=== PATIENT | male | born 1995 | race Caucasian/White ===

== ENCOUNTER 2024-04-28 03:06 | Day surgery (SDC) | payer MEDICAID, SELFPAY ==
[2024-04-25 12:53] VITALS: BMI 28.4
--- OUTSIDE RECORDS SUMMARY | 2024-04-28 03:09 | XMS_ITS | Encounter Summary ---
Author Organization [facility] Address [address] [place] [address]. [address] [address] Care Team Providers Care Tank Wagon Driver Name Role Phone None, Provider Primary Care Provider Cullen Alexander MD Primary Care Provider None, Provider Primary Care Provider Carole crawford Encounter Details Date Type Department Care Team (Late st Contact Info) Description 09/03/2018 Abstract SFL CONVERSION [address] [place] [id number] , Generic Conversion, Social History Tobacco Use Types Packs/Day Years Used Date Smoking Tobacco: Never Assessed Sex and Gender Information Value Date Recorded Sex Assigned at Not on file Legal Sex Male 3:50 PM CDT Gender Identity Not on file Sexual Orientation Not on file documented as of this encounter Plan of Treatment Not on file documented as of this encounter Visit Diagnoses Not on filedocumented in this encounter Additional Health Concerns Infection Onset Date Last Indicated Resolved Time COVID-19 Rule Out 03/27/2022 03/27/2022 03/27/2022 4:17 PM PHYSICAL TRAINER COVID-19 Rule Out 03/01/2024 03/01/2024 03/01/2024 6:00 PM PHYSICAL TRAINER COVID-19 Rule Out 03/05/2024 03/05/2024 03/06/2024 12:05 AM PHYSICAL TRAINER Rhinovirus 03/05/2024 03/05/2024 03/15/2024 12:3 2 AM PHYSICAL TRAINER documented as of this encounter Care Teams Tank Wagon Driver Relationship Specialty Start Date End Date None, Provider, PCP - General 07/28/19 01/29/20 Cullen Saleh MD [address] [place] [phone] PCP - General FAMILY PRACTICE 01/30/20 03/26/22 None, Provider, PCP - General UNKNOWN PHYSICIAN SPECIALTY 03/27/22 documented as of this encounter
--- OUTSIDE RECORDS SUMMARY | 2024-04-28 03:09 | XMS_ITS | Clinical Summary ---
Author Organization [facility] Address [address] [place] [address]. [place], [place] [address] [place] [id number] Care Team Providers Care Waistline Joiner Overlock Name Role Phone None, Provider MD Primary Care Provider Unavaila ble Allergies No known active allergies Medications cyclobenzaprine (FLEXERIL) 10 MG tablet Take 1 tablet (10 mg total) by mouth 3 (three) times daily as needed for Muscle Spasms. 12 tablet 4 Active pantoprazole EC (PROTONIX) 40 MG tablet Take 1 tablet (40 mg total) by mouth 2 (two) times a day. 30 tablet 1 4 Active methylPREDNISolone (MEDROL) 4 MG tablet Take 1 tablet (4 mg total) by mouth daily. Active ondansetron (ZOFRAN-ODT) 4 MG disintegrating tablet Take 1 tablet (4 mg total) by mouth every 8 (eight) hours as needed for Nausea. 20 tablet 4 Active Active Problems Problem Noted Date Diagnosed Date Hematemesis with nausea 03/06/2024 Hematemesis 03/05/2024 Encounters Date Type Department Care Team Description 03/13/2024 8:15 AM SYSTEMS LIBRARIAN - 03/13/2024 11:59 PM [facility] [place] [address] Yohan Sun NP Discharge Disposition: Home or Self Care (Routine Discharge) 03/13/[address] [place] [address] Yohan Sun NP 03/13/2024 Travel 03/11/2024 1:51 AM SYSTEMS LIBRARIAN - 03/11/2024 4:45 AM SYSTEMS LIBRARIAN Emergency [facility] [place] [address] Loida Christian, Vomiting Discharge Disposition: Home or Self Care (Routine Discharge) 03/11/2024 Travel 03/10/2024 9:54 AM SYSTEMS LIBRARIAN - 03/10/2024 11:59 PM SYSTEMS LIBRARIAN Hospital Encounter [facility] [place] [address] Cullen Saleh MD Grothaus, Morgan Elizabeth, NP Discharge Disposition: Home or Self Care (Routine Discharge) 03/10/2024 9:53 AM SYSTEMS LIBRARIAN Hospital Encounter [facility] [place] [address] Cullen Saleh MD Discharge Disposition: Home or Self Care (Routine Discharge) 03/10/2024 Orders Only [facility] [address] [place] [address] [place] [address] Yohan Sun NP 03/10/2024 Travel 03/05/2024 8:32 PM SYSTEMS LIBRARIAN - 03/06/2024 4:48 PM SYSTEMS LIBRARIAN Hospital Encounter [facility] [address] [place] [address] Rajan Shelby MD Sheikh, Omer S, MD Mardani, Fareed, MD Discharge Disposition: Home or Self Care (Routine Discharge) 03/05/2024 8:37 AM SYSTEMS LIBRARIAN - 03/05/2024 7:22 PM SYSTEMS LIBRARIAN [facility] [place] [address] Loida Christian DO Medical Problem (Recent pneumonia DX. States is worse throwing up blood last night continues with high fevers ) Discharge Disposition: Another Health Care Institution Not Defined 03/05/2024 Travel 03/01/2024 4:59 PM SYSTEMS LIBRARIAN - 03/01/2024 7:31 PM SYSTEMS LIBRARIAN [facility] [place] [address] Lorri Haddad MD Fever; Flank Pain Discharge Disposition: Home or Self Care (Routine Discharge) 03/01/2024 Travel 01/31/2024 11:44 AM SYSTEMS LIBRARIAN - 01/31/2024 1:08 PM SYSTEMS LIBRARIAN [facility] [address] [place] [place] [address] Cathryn Chilel MD Vomiting Discharge Disposition: Home or Self Care (Routine Discharge) 01/31/2024 Travel from Last 3 Months Immunizations Name Administration Dates Next Due Fluzone (IIV3, Trivalent, 0. 5 ML Prefilled Syringe) 03/06/2024(Deferred: Patient/family declined) PFIZER COVID-19 (ORIGINAL FORMULATION, PURPLE CAP) mRNA, LNP-S, PF, 30 MCG/0.3 ML DOSE 01/04/2021,11/23/2020 Social History Tobacco Use Types Packs/Day Years Used Date Smoking Tobacco: Never Smokeless Tobacco: Never Alcohol Use Standard Drinks/Week Comments Yes 0 (1 standard drink = 0.6 oz pur e alcohol) occasionally Sex and Gender Information Value Date Recorded Sex Assigned at Not on file Legal Sex Male 3:50 PM CDT Gender Identity Not on file Sexual Orientation Not on file Last Filed Vital Signs Vital Sign Reading Time Taken Comments Blood Pressure 105/62 03/11/2024 4:30 AM SYSTEMS LIBRARIAN Pulse 117 03/11/2024 1:58 AM SYSTEMS LIBRARIAN Temperature 37.1 ??C (98.7 ??F) 03/11/2024 4:25 AM CS T Respiratory Rate 20 03/11/2024 1:58 AM SYSTEMS LIBRARIAN Oxygen Saturation 95% 03/11/2024 4:30 AM SYSTEMS LIBRARIAN Inhaled Oxygen Concentration - - Weight 97.5 kg (214 lb 15.2 oz) 03/11/2024 1:58 AM SYSTEMS LIBRARIAN Height 188 cm (6' 2.02 ) 03/11/2024 1:58 AM SYSTEMS LIBRARIAN Body Mass Index 27.58 03/11/2024 1:58 AM SYSTEMS LIBRARIAN Plan of Treatment Health Maintenance Due Date Last Done Comments Annual Physical 1997 Hepatitis B Vaccines (1 of 3 - 19+ 3-dose series) 2013 COVID-19 Vaccine (2023-2 5 season) 2023 01/04/2021, 11/23/2020 Influenza Adult (#1) 2023 01/28/2018 DTaP, Tdap and Td Vaccines ( 2 - Td or Tdap) 07/09/2024 07/09/2014 Hepatitis C Completed 03/05/2024 HPV Vaccines Aged Out No longer eligi ble based on patient's age to complete this topic Meningococcal B Vaccine Aged Out No l onger eligible based on patient's age to complete this topic Meningococcal Vaccine Aged Out No jorge aly eligible based on patient's age to complete this topic Pneumococcal Vaccine: Pediatrics (0 to 5 Years) and At-Risk Patients (6 to 64 Years) Aged Out No longer eligible b ased on patient's age to complete this topic RSV Immunizations Under 20 Months Aged Out No longer eligible b ased on patient's age to complete this topic Procedures Procedure Name Priority Date/Time Associated Diagnosis Comments C-REACTIVE PROTEIN Routine 03/13/2024 8: 40 AM SYSTEMS LIBRARIAN Hyperbilirubinem ia CBC W/DIFF AUTOMATED Routine 03/13/2024 8:40 AM SYSTEMS LIBRARIAN Hyperbilirubinem ia RHEUMATOID FACTOR, QUANT Routine 03/13/2024 8:40 AM SYSTEMS LIBRARIAN Hyperbilirubinem ia LYME DISEASE ANTIBODY Routine 03/13/2024 8:40 AM SYSTEMS LIBRARIAN Hyperbilirubinem ia SED RATE, ERYTHROCYTE (ESR) Routine 03/13/2024 8:40 AM SYSTEMS LIBRARIAN Hyperbilirubinem ia CYCLIC CITRULLINATED PEPTIDE (CCP)ANTIBODY(IGG) Routine 03/13/2024 8:40 AM SYSTEMS LIBRARIAN Hyperbilirubinem ia ANTINUCLEAR ANTIBODY WI RFX Routine 03/13/2024 8:40 AM SYSTEMS LIBRARIAN Hyperbilirubinem ia HC EBV NUCLEAR AG-90 STAT 03/11/2024 2:40 AM SYSTEMS LIBRARIAN COMPREHENSIVE METABOLIC PANEL STAT 03/11/2024 2:40 AM SYSTEMS LIBRARIAN CBC W/DIFF AUTOMATED STAT 03/11/2024 2:[address] ABD+PEL WWO CON STAT 03/10/2024 4: 48 PM SYSTEMS LIBRARIAN Hepatosplenomega ly CT CHEST WO CON STAT 03/10/2024 4:47 PM SYSTEMS LIBRARIAN Pneumonia XR CHEST PA+LAT Routine 03/10/2024 10:39 AM SYSTEMS LIBRARIAN Pneumonia HETEROPHILE ANTIBODIES,SCREEN Routine 03/10/2024 10:30 AM SYSTEMS LIBRARIAN Hyperbilirubinem ia Fever HC EBV NUCLEAR AG-90 Routine 03/10/2024 10:30 AM SYSTEMS LIBRARIAN Hyperbilirubinem ia Fever COMPREHENSIVE METABOLIC PANEL Routine 03/10/2024 10:30 AM SYSTEMS LIBRARIAN Hyperbilirubinem ia Fever HEMOGLOBIN AND HEMATOCRIT TIMED 03/06/2024 1:[address] CHEST WO CON Today 03/06/2024 9:42 AM SYSTEMS LIBRARIAN DIRECT BILIRUBIN Routine 03/06/2024 4:15 AM SYSTEMS LIBRARIAN COMPREHENSIVE METABOLIC PANEL Routine 03/06/2024 4:15 AM SYSTEMS LIBRARIAN CBC W/DIFF AUTOMATED Routine 03/06/2024 4:15 AM SYSTEMS LIBRARIAN US ABD LIMITED Today 03/06/2024 12:26 AM SYSTEMS LIBRARIAN HEMOGLOBIN, GLYCOSYLATED Routine 03/05/2024 11:45 PM SYSTEMS LIBRARIAN HC INFECT AGENT DETECT OPTICAL Nurse Collected Priority 03/05/2024 11:16 PM SYSTEMS LIBRARIAN LEGIONELLA AG URINE Nurse Collected Priority 03/05/2024 11:16 PM SYSTEMS LIBRARIAN DRUG SCREEN RAPID Nurse Collected Priority 03/05/2024 11:16 PM SYSTEMS LIBRARIAN RESPIRATORY PCR PANEL 2 Nurse Collected Priority 03/05/2024 10:31 PM SYSTEMS LIBRARIAN LIPASE Routine 03/05/2024 10:18 PM SYSTEMS LIBRARIAN HEPATITIS PANEL,ACUTE Routine 03/05/2024 10:18 PM SYSTEMS LIBRARIAN ETHANOL Routine 03/05/2024 10:18 PM SYSTEMS LIBRARIAN HEMOGLOBIN AND HEMATOCRIT TIMED 03/05/2024 10:18 PM SYSTEMS LIBRARIAN CULTURE, BACTERIA, BLOOD Routine 03/05/2024 10:17 PM SYSTEMS LIBRARIAN RESPIRATORY PCR PANEL 2 STAT 03/05/2024 10:56 AM SYSTEMS LIBRARIAN XR CHEST PA+LAT STAT 03/05/2024 9:47 AM SYSTEMS LIBRARIAN XR SHOULDER LT 3V STAT 03/05/2024 9:4 7 AM SYSTEMS LIBRARIAN PARTIAL THROMBOPLASTIN TIME,PTT STAT 03/05/2024 9:21 AM SYSTEMS LIBRARIAN PROTHROMBIN TIME, VENOUS STAT 03/05/2024 9:21 AM SYSTEMS LIBRARIAN COMPREHENSIVE METABOLIC PANEL STAT 03/05/2024 9:21 AM SYSTEMS LIBRARIAN CBC W/DIFF AUTOMATED STAT 03/05/2024 9:21 AM SYSTEMS LIBRARIAN URINE BACTERIA CULTURE STAT 03/01/2024 7:20 PM SYSTEMS LIBRARIAN HC URINALYSIS AUTO W/MICRO STAT 03/01/2024 7:[address] ABD+PEL W CON STAT 03/01/2024 5:41 PM SYSTEMS LIBRARIAN INFLUENZA A & B STAT 03/01/2024 5:25 PM SYSTEMS LIBRARIAN CORONAVIRUS (COVID-19) ANTIGEN STAT 03/01/2024 5:25 PM SYSTEMS LIBRARIAN CULTURE, BACTERIA, BLOOD STAT 03/01/2024 5:25 PM SYSTEMS LIBRARIAN LACTIC ACID W REFLEX (SEPSIS) STAT 03/01/2024 5:25 PM SYSTEMS LIBRARIAN COMPREHENSIVE METABOLIC PANEL STAT 03/01/2024 5:25 PM SYSTEMS LIBRARIAN CBC W/DIFF AUTOMATED STAT 03/01/2024 5:25 PM SYSTEMS LIBRARIAN HC URINALYSIS AUTO W/MICRO STAT 01/31/2024 12:33 PM SYSTEMS LIBRARIAN LIPASE STAT 01/31/2024 12:21 PM SYSTEMS LIBRARIAN COMPREHENSIVE METABOLIC PANEL STAT 01/31/2024 12:21 PM SYSTEMS LIBRARIAN CBC W/DIFF AUTOMATED STAT 01/31/2024 12:21 PM SYSTEMS LIBRARIAN from Last 3 Months Results * ANTINUCLEAR ANTIBODY WI RFX (03/13/2024 8:40 AM SYSTEMS LIBRARIAN) MALINI 0.2 03/14/2024 10:53 AM SYSTEMS LIBRARIAN [facility] Comment: NEGATIVE: <0.7 RATIO MALINI PROFILE AND TITER NOT PERFORMED THE MALINI SCREEN TESTS FOR THE FOLLOWING ANTIBODIES BY EIA: SSA1 (RO), SSB1 (LA), HILL, SCL70, JO1, CENTROMERE, FAUCETS ASSEMBLER HISTONE MUST BE ORDERED SEPARATELY DNA (DS) ANTIBODY <0.6 IU/ML 024 10:53 AM SYSTEMS LIBRARIAN [facility] Comment: NEGATIVE: <10 IU/mL EQUIVOCAL: 10 to 15 IU/mL POSITIVE: >15 IU/mL THIS QUANTITATIVE ASSAY IS CALIBRATED TO THE [employer]'S WO/80 STANDARD. THE LEVEL OF dsDNA AUTOANTIBODY GERERALLY CORRELATES WITH THE LEVEL OF DISEASE ACTIVITY IN SYSTEMIC LUPUS ERYTHMATOSUS 03/13/2024 8:40 AM SYSTEMS LIBRARIAN Yohan Sun NP LABORATORY Fin al Result Performing Organization Address City/[facility]/ZIP Co de Phone Number [facility] [address] [place] [address], [phone] * RHEUMATOID FACTOR, QUANT (03/13/2024 8:40 AM SYSTEMS LIBRARIAN) RHEUMATOID FACTOR <10 <15 IU/ML 03/13/2024 4:07 PM SYSTEMS LIBRARIAN [facility] 03/13/2024 8:40 AM SYSTEMS LIBRARIAN Yohan [facility] LABORATORY Fin al Result Performing Organization Address [facility] de Phone Number [facility] [address] [place] [address], [place] [phone] * CYCLIC CITRULLINATED PEPTIDE (CCP)ANTIBODY(IGG) (03/13/2024 8:40 AM SYSTEMS LIBRARIAN) CITRULLINE PEPTIDE ANTIBODY <16 <20 Units 03/17/2024 4:13 PM SYSTEMS LIBRARIAN [employer] HALIE QUESADA Comment: Negative: ? <20 Weak Positive: ?20 - 39 Moderate Positive: ?40 - 59 Strong Positive: ?>59 Test Performed by Bryon Zapata, [employer] [facility], [address] [place] [address] Wes Carroll M.D., Ph.D., Director of Laboratories , [facility] [id number] 03/13/2024 8:40 AM SYSTEMS LIBRARIAN Yohan [facility] CONTINUOUS IMPROVEMENT ENGINEER LABORATORY Fin al Result Performing Organization Address City/[facility] Co de Phone Number [employer] [place] [address] [place] [address], [place] [phone] * (ABNORMAL) SED RATE, ERYTHROCYTE (ESR) (03/13/2024 8:40 AM SYSTEMS LIBRARIAN) ESR 25(H) 0 - 15 MM/HR 03/13/2024 9:[address] [facility] 03/13/2024 8:40 AM SYSTEMS LIBRARIAN Yohan Sun CONTINUOUS IMPROVEMENT ENGINEER LABORATORY Fin al Result [facility] [address] [place] [address], * LYME DISEASE ANTIBODY (03/13/2024 8:40 AM SYSTEMS LIBRARIAN) Pathologist [facility] LYME IGG/IGM <0.90 <0.90 Index 03/16/2024 7:41 AM SYSTEMS LIBRARIAN Marvin CHRISTINE QUESADA Comment: Reference ranges: Index ? Interpretation ----- ? <0.90 ? Negative 0.90-1.09 ? Equivocal >1.09 ? Positive As recommended by the Food and Drug Administration (FDA), all samples with positive or equivocal results in a Borrelia burgdorferi antibody screen will be tested using a blot method. Positive or equivocal screening test results should not be interpreted as truly positive until verified as such using a supplemental assay (e.g., B. burgdorferi blot). The screening test and/or blot for B. burgdorferi antibodies may be falsely negative in early stages of Lyme disease, including the period when erythema migrans is apparent. The Code of [place], Article 1 of Chapter 5 of Title 32.1, section 32.1-137.06, requires that the following language must be included on every Lyme disease test report issued by a [place] laboratory: Patients undergoing a Lyme disease test should be aware that Lyme disease tests vary and may produce results that are inaccurate. This means a patient may not be able to rely on a positive or negative result. Health care providers are encouraged to discuss Lyme disease test results with the patient for whom the test was ordered. Test Performed by [facility], [employer] [facility], [address] [place] [address] Wes Carroll M.D., Ph.D., Director of Laboratories , CLIA [id number] 03/13/2024 8:40 AM SYSTEMS LIBRARIAN [facility] JULIO CESAR LABORATORY Fin al Result [employer] [address] , [place] [phone] * (ABNORMAL) C-REACTIVE PROTEIN (03/13/2024 8:40 AM SYSTEMS LIBRARIAN) C-REACTIVE PROTEIN 3.27(H) <0.30 mg/dL 03/13/2024 9:[address] [facility] 03/13/2024 8:40 AM SYSTEMS LIBRARIAN [facility] [address] [place] [address], [place] [phone] * (ABNORMAL) CBC W/DIFF AUTOMATED (03/13/2024 8:40 AM SYSTEMS LIBRARIAN) Only the most recent of6 resultswithin the time period is included. WBC 10.28 4.00 - 10.80 x10'3/uL 03/13/2024 9:[address] [facility] RBC 5.06 4.50 - 6.10 x10'6/uL 03/13/2024 9:[address] [facility] HGB 14.5 13.0 - 18.0 G/DL 03/13/2024 9:[address] [facility] HCT 43.8 37.0 - 52.0 % 03/13/2024 9:41 AM [facility] MCV 86.6 78.0 - 100.0 FL 03/13/2024 9:41 AM [facility] MCH 28.7 27.0 - 31.0 PG 03/13/2024 9:41 AM [facility] MCHC 33.1 33.0 - 36.0 G/DL 03/13/2024 9:41 AM [facility] RDW 14.1 11.5 - 14.5 % 03/13/2024 9:41 AM [facility] PLT 255 150 - 350 x10'3/uL 03/13/2024 9:41 AM [facility] MPV 10.7(H) 7.4 - 10.4 FL 03/13/2024 9:41 AM [facility] CBC COMMENT NORMAL REFERENCE RANGE NOT ESTABLISHED FOR THE PROPORTIONAL LEUKOCYTE DIFFERENTIAL. 03/13/2024 9:41 AM [facility] SEG NEUTROPHILS 36 % 11:02 AM [facility] BANDS 2 % 03/13/2024 11:02 AM [facility] LYMPHOCYTES 53 % 03/13/2024 11:02 AM [facility] MONOCYTES 9 % 03/13/2024 11:02 AM [facility] ABS SEGMENTED NEUTS 3.70 1.60 - 8.30 x10'3/uL 03/13/2024 11:02 AM [facility] ABS. BANDS 0.21 0.00 - 1.00 x10'3/uL 03/13/2024 11:02 AM [facility] ABS. LYMPHOCYTES 5.44(H) 0.80 - 4.70 x10'3/uL 03/13/2024 11:02 AM [facility] ABS. MONOCYTES 0.93 0.10 - 1.50 x10'3/uL 03/13/2024 11:02 AM [facility] PLT MORPH. NORMAL 03/13/2024 11:02 AM [facility] RBC MORPHOLOGY 2+ 03/13/2024 11:02 AM [facility] Comment: ANISOCYTOSIS 2+ POIKILOCYTOSIS 1+ ELLIPTOCYTES 1+ TARGET CELLS WBC MORPHOLOGY MANY ATYPICAL LYMPHS 03/13/2024 11:02 AM [facility] 03/13/2024 8:40 AM SYSTEMS LIBRARIAN Yohan Sun CONTINUOUS IMPROVEMENT ENGINEER LABORATORY Fin al Result [facility] [address] [place] [address], * (ABNORMAL) COMPREHENSIVE METABOLIC PANEL (03/11/2024 2:40 AM SYSTEMS LIBRARIAN) Only the most recent of6 resultswithin the time period is included. SODIUM S/P/B 135(L) 136 - 145 MMOL/L 03/11/2024 3:12 AM [facility] POTASSIUM S/P/B 3.5 3.5 - 5.1 MMOL/L 03/11/2024 3:12 AM [facility] Comment:MILD HEMOLYSIS, RESU LT MAY BE AFFECTED. CHLORIDE S/P/B 98 98 - 107 MMOL/L 03/11/2024 3:12 AM [facility] CO2 26.6 21.0 - 32.0 MMOL/L 03/11/2024 3:12 AM [facility] GLUCOSE 123(H) 70 - 99 MG/DL 03/11/2024 3:12 AM [facility] Comment: MILD LIPEMIA. RESULT MAY BE AFFECTED. FASTING GLUCOSE 100 TO 125 MG/DL IS CONSISTENT WITH IMPAIRED FASTING GLUCOSE. FASTING GLUCOSE >125 MG/DL IS CONSISTENT WITH DIABETES. RANDOM GLUCOSE >200 MG/DL WITH HYPERGLYCEMIC SYMPTOMS IS CONSISTENT WITH DIABETES. PER ADA GUIDELINES BUN 9 6 - 24 MG/DL 03/11/2024 3:12 AM [facility] CREATININE S/P/B 1.10 0.70 - 1.30 MG/DL 03/11/2024 3:12 AM [facility] CALCIUM S/P/B 8.5 8.4 - 10.5 MG/DL 03/11/2024 3:12 AM [facility] BILIRUBIN TOTAL S/P/B 1.4(H) 0.2 - 1.0 MG/DL 03/11/2024 3:12 AM [facility] Comment: THIS ASSAY IS NOT RECOMMENDED FOR PATIENTS UNDERGOING TREATMENT WITH ELTROMBOPAG DUE TO THE POTENTIAL FOR FALSELY ELEVATED RESULTS. ALKALINE PHOSPHATASE S/P/B 143(H) 45 - 115 U/L 03/11/2024 3:12 AM [facility] AST 90(H) 15 - 37 U/L 03/11/2024 3:12 AM [facility] Comment:MILD HEMOLYSIS, RESU LT MAY BE AFFECTED. ALT 112(H) 16 - 63 U/L 03/11/2024 3:12 AM [facility] TOTAL PROTEIN S/P/B 6.8 6.4 - 8.2 G/DL 03/11/2024 3:12 AM [facility] ALBUMIN S/P/B 3.1(L) 3.4 - 5.0 G/DL 03/11/2024 3:12 AM [facility] ANION GAP 10.4 5.0 - 15.0 MMOL/L 03/11/2024 3:12 AM [facility] OSMOLALITY (CALC) 280 MOSM/KG 03/11/ 024 3:12 AM [facility] Comment:REFERENCE RANGE NOT ESTABLISHED GFR ESTIMATE >90 >89 ML/MIN/1. 73 M2 03/11/2024 3:12 AM [facility] GFR NOTES GFR REFERENCE S: 03/11/2024 3:12 AM [facility] Comment: THE ESTIMATED GFR IS CALCULATED USING THE 2020 CKD-EPI EQUATION. THE FOLLOWING CATEGORIES FOR GRADING RENAL FUNCTION ARE RECOMMENDED BY THE INTERNATIONAL SOCIETY OF NEPHROLOGY (KDIGO 2012 CLINICAL PRACTICE GUIDELINE). G1,NORMAL OR HIGH: >89 ml/min/1.73 m2 G2,MILDLY DECREASED: 60-89 ml/min/1.73 m2 G3A,MILDLY TO MODERATELY DECREASED: 45-59 ml/min/1.73 m2 G3B,MODERATELY TO SEVERELY DECREASED: 30-44 ml/min/1.73 m2 G4,SEVERELY DECREASED: 15-29 ml/min/1.73 m2 G5,KIDNEY FAILURE: <15 ml/min/1.73 m2 03/11/2024 2:40 AM SYSTEMS LIBRARIAN us Loida Christian DO LABORATORY Final Result [facility] [address] [place] [address], * (ABNORMAL) MARISOL KONG VIRUS (03/11/2024 2:40 AM SYSTEMS LIBRARIAN) Only the most recent of2 resultswithin the time period is included. EBV VCA IGM <36.00 <36.00 U/mL 03/16/2024 2:42 PM [employer] BALDO MANCUSO Comment: ?? U/mL ?Interpretation ?<36.00 ?Negative 36.00 - 43.99 ?Equivocal ??>43.99 ?Positive EBV VCA IGG 620.00(H) <18.00 U/mL 03/16/2024 2:42 PM [employer] BALDO MANCUSO Comment: ?? U/mL ?Interpretation ?<18.00 ?Negative 18.00 - 21.99 ?Equivocal ??>21.99 ?Positive MARISOL BAR NUCLEAR ANTIGEN IGG 361.00(H) <18.00 U/mL 03/16/2024 2:42 PM [employer] BALDO MANCUSO Comment: ?? 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 In infants, a similiar pattern may occur as a result of a passive maternal transfer of antibody. Test Performed by Bryon Zapata, [employer] [facility], [address] [place] [address] Wes Carroll M.D., Ph.D., Director of Laboratories , [place] [id number] 03/11/2024 2:40 AM SYSTEMS LIBRARIAN us Loida Christian DO LABORATORY Final Result [employer] [address] , * CT ABD+PEL WWO CON (03/10/2024 4:48 PM SYSTEMS LIBRARIAN) Anatomical Region Laterality Modality Abdomen Computed Tomogra phy 03/10/2024 5:56 PM SYSTEMS LIBRARIAN Impressions 03/10/2024 6:03 PM SYSTEMS LIBRARIAN IMPRESSION: 1. ??Hepatosplenomegaly, similar to the prior examination. 2. ??No definite solid or enhancing hepatic or splenic masses are identified. 3. ??There are several tiny hypodensities within the superior aspect of the spleen. These are technically indeterminant but are most likely to be small benign cysts. Follow-up/further evaluation with MRI with/without contrast in 3 months could be performed with attention to the liver and spleen. 4. ??Stable 1 mm nonobstructing calculus within the left kidney. No hydronephrosis or urolithiasis. 5. ??No ascites. Ordered By: YOHAN SUN Interpreted By: Patricio Winters DO, 03/10/2024 5:56 PM Narrative 03/10/2024 6:03 PM SYSTEMS LIBRARIAN [place] [id number] [place] [address] EXAMINATION: CT ABD+PEL WWO CON HISTORY: Hepatosplenomegaly. Follow-up. COMPARISON: CT abdomen/pelvis 03/01/2024. TECHNIQUE: Axial CT images of the abdomen and pelvis both before and after the uneventful intravenous administration of 90 mL of Isovue-370 given through the right antecubital fossa. Sagittal and coronal reformatted image sets. A dose lowering technique was used for this procedure, which may include, but is not limited to, dose reduction technique, automated exposure control, the use of degenerative reconstruction, and ALARA/image gently techniques. FINDINGS: The included lung bases are clear. The heart is normally sized. The liver and spleen remain enlarged, similar to the prior examination. No evidence of hepatic steatosis. No evidence of hepatic mass. There are several tiny hypodensities within the superior aspect of the spleen. These are technically indeterminant but are most likely to be small benign cysts. Follow-up/further evaluation with MRI with/without contrast in 3 months could be performed with attention to the liver and spleen. No definite solid or enhancing splenic masses are identified. There is no cholelithiasis. No evidence of acute cholecystitis. There is no biliary ductal dilatation. No acute-appearing pancreatic abnormalities. No adrenal masses. The kidneys enhance symmetrically. There is a nodular renal contour bilaterally. No hydrocephalus. Stable 1 mm nonobstructing calculus within the left kidney. There is no urolithiasis. No evidence of renal mass or inflammation. The abdominal aorta is normal caliber. There is no retroperitoneal lymphadenopathy. No ascites or free intraperitoneal air. There is no bowel obstruction. No evidence of colonic or enteric inflammatory change. The appendix is normal caliber. No evidence of acute appendicitis. No herniated bowel loops. Small fat-containing umbilical hernia. There is no bladder wall thickening. No free pelvic fluid. No acute osseous abnormalities identified. ?? Procedure Note Patricio Winters DO - 03/10/2024 [facility] [address] [place] [address] EXAMINATION: CT ABD+PEL WWO CON HISTORY: Hepatosplenomegaly. Follow-up. COMPARISON: CT abdomen/pelvis 03/01/2024. TECHNIQUE: Axial CT images of the abdomen and pelvis both before and after theuneventful intravenous administration of 90 mL of Isovue-370 given throughthe right antecubital fossa. Sagittal and coronal reformatted imagesets. A dose lowering technique was used for this procedure, which may include,but is not limited to, dose reduction technique, automated exposurecontrol, the use of degenerative reconstruction, and ALARA/image gentlytechniques. FINDINGS: The included lung bases are clear. The heart is normally sized. The liverand spleen remain enlarged, similar to the prior examination. No evidenceof hepatic steatosis. No evidence of hepatic mass. There are several tinyhypodensities within the superior aspect of the spleen. These aretechnically indeterminant but are most likely to be small benign cysts.Follow-up/further evaluation with MRI with/without contrast in 3 monthscould be performed with attention to the liver and spleen. No definitesolid or enhancing splenic masses are identified. There is no cholelithiasis. No evidence of acute cholecystitis. There isno biliary ductal dilatation. No acute-appearing pancreatic abnormalities.No adrenal masses. The kidneys enhance symmetrically. There is a nodular renal contourbilaterally. No hydrocephalus. Stable 1 mm nonobstructing calculus withinthe left kidney. There is no urolithiasis. No evidence of renal mass orinflammation. The abdominal aorta is normal caliber. There is no retroperitoneallymphadenopathy. No ascites or free intraperitoneal air. There is no bowel obstruction. Noevidence of colonic or enteric inflammatory change. The appendix is normalcaliber. No evidence of acute appendicitis. No herniated bowel loops.Small fat-containing umbilical hernia. There is no bladder wall thickening. No free pelvic fluid. No acute osseous abnormalities identified. IMPRESSION: 1. Hepatosplenomegaly, similar to the prior examination. 2. No definite solid or enhancing hepatic or splenic masses areidentified. 3. There are several tiny hypodensities within the superior aspect of thespleen. These are technically indeterminant but are most likely to besmall benign cysts. Follow-up/further evaluation with MRI with/withoutcontrast in 3 months could be performed with attention to the liver andspleen. 4. Stable 1 mm nonobstructing calculus within the left kidney. Nohydronephrosis or urolithiasis. 5. No ascites. Ordered By: YOHAN SUN Interpreted By: Patricio Winters DO, 03/10/2024 5:56 PM us Yohan Sun CONTINUOUS IMPROVEMENT ENGINEER CT Fin al Result * CT CHEST WO CON (03/10/2024 4:47 PM SYSTEMS LIBRARIAN) Only the most recent of2 resultswithin the time period is included. Anatomical Region Laterality Modality Chest Computed Tomogra phy 03/10/2024 5:13 PM SYSTEMS LIBRARIAN Impressions 03/10/2024 6:12 PM SYSTEMS LIBRARIAN IMPRESSION: 1. No evidence of pneumonia. 2. Stable 3 mm nodule in the left lung base. A follow-up CT scan of the chest in 12 months could be considered if the patient is at high risk for lung cancer. No further follow-up is needed in a low risk patient per Fleischner Society guidelines. Dictated By: Kieran Haney MD on 03/10/2024 5:13 PM The attending radiologist has reviewed the image(s) and agrees with the content of this report. Ordered By: YOHAN SUN Interpreted By: Kieran Haney MD, 03/10/2024 5:13 PM Narrative 03/10/2024 6:12 PM SYSTEMS LIBRARIAN [address] [place] [address] Examination: CT CHEST WO CON Exam time: 03/10/2024 4:41 PM Clinical history: Pneumonia follow-up Comparison: CT chest 03/06/2024, chest radiograph 03/05/2024 Technique: CT chest was performed without the use of IV contrast. Coronal and sagittal reformatted images were reviewed. A dose lowering technique was used for this procedure, which may include, but is not limited to, dose reduction technique, automated exposure control, iterative reconstruction, ALARA (As Low As Reasonably Achievable), or Image Gently techniques. Findings: No focal consolidation is seen within the lungs. There is a redemonstrated 3 mm pulmonary nodule in the left lower lobe on series 3 image 53. There are no sizable pleural effusions. No pneumothorax is identified. There is no central airway abnormality. The heart is normal in size. There is no pericardial effusion. The aorta and main pulmonary arteries are normal in caliber. There is no mediastinal lymphadenopathy. No acute abnormality seen in the visualized upper abdomen. Procedure Note Dejon Anaya MD - 03/10/2024 [place] [id number] [place] [address] Examination: CT CHEST WO CON Exam time: 03/10/2024 4:41 PM Clinical history: Pneumonia follow-up Comparison: CT chest 03/06/2024, chest radiograph 03/05/2024 Technique: CT chest was performed without the use of IV contrast. Coronaland sagittal reformatted images were reviewed. A dose lowering techniquewas used for this procedure, which may include, but is not limited to,dose reduction technique, automated exposure control, iterativereconstruction, ALARA (As Low As Reasonably Achievable), or Image Gentlytechniques. Findings: No focal consolidation is seen within the lungs. There is a redemonstrated3 mm pulmonary nodule in the left lower lobe on series 3 image 53. Thereare no sizable pleural effusions. No pneumothorax is identified. There isno central airway abnormality. The heart is normal in size. There is nopericardial effusion. The aorta and main pulmonary arteries are normal incaliber. There is no mediastinal lymphadenopathy. No acute abnormalityseen in the visualized upper abdomen. IMPRESSION: 1. No evidence of pneumonia. 2. Stable 3 mm nodule in the left lung base. A follow-up CT scan of thechest in 12 months could be considered if the patient is at high risk forlung cancer. No further follow-up is needed in a low risk patient perFleischner Society guidelines. Dictated By: Kieran Haney MD on 03/10/2024 5:13 PM The attending radiologist has reviewed the image(s) and agrees with thecontent of this report. Ordered By: YOHAN SUN Interpreted By: Kieran Haney MD, 03/10/2024 5:13 PM us Yohan Sun CONTINUOUS IMPROVEMENT ENGINEER CT Fin al Result * XR CHEST PA+LAT (03/10/2024 10:39 AM SYSTEMS LIBRARIAN) Only the most recent of2 resultswithin the time period is included. Anatomical Region Laterality Modality Chest Radiographic Margarita ging 03/10/2024 10:4 8 AM SYSTEMS LIBRARIAN Impressions 03/10/2024 10:50 AM SYSTEMS LIBRARIAN IMPRESSION: No acute cardiopulmonary process identified. Ordered By: YOHAN SUN Interpreted By: William Ramirez MD, 03/10/2024 10:48 AM Narrative 03/10/2024 10:50 AM SYSTEMS LIBRARIAN [address] [place] [facility] Examination: Two-view chest Exam time: 1018 hours. Clinical history: Cough. Comparison: ??03/05/2024; CT of the chest, 03/06/2024. Technique: PA and lateral views Findings: The cardiomediastinal silhouette is stable. The heart remains within normal limits for size. Pulmonary vascularity is within normal limits. No acute infiltrates or effusions are identified. The bony thorax is stable. Procedure Note William Ramirez MD - 03/10/[address] [place] [address] Examination: Two-view chest Exam time: 1018 hours. Clinical history: Cough. Comparison: 03/05/2024; CT of the chest, 03/06/2024. Technique: PA and lateral views Findings: The cardiomediastinal silhouette is stable. The heart remainswithin normal limits for size. Pulmonary vascularity is within normallimits. No acute infiltrates or effusions are identified. The bony thoraxis stable. IMPRESSION: No acute cardiopulmonary process identified. Ordered By: YOHAN SUN Interpreted By: William Ramirez MD, 03/10/2024 10:48 AM Yohan Sun CONTINUOUS IMPROVEMENT ENGINEER GENERAL IMAGING Fin al Result * HETEROPHILE ANTIBODIES,SCREEN (03/10/2024 10:30 AM SYSTEMS LIBRARIAN) MONO TEST NEGATIVE NEGATIVE 03/10/2024 11:[address] [facility] 03/10/2024 10:3 0 AM SYSTEMS LIBRARIAN Yohan Sun CONTINUOUS IMPROVEMENT ENGINEER LABORATORY Fin al Result Performing Organization Address City/[facility] Co de Phone Number [facility] [address] [place] [address], * HEMOGLOBIN AND HEMATOCRIT (03/06/2024 1:40 PM SYSTEMS LIBRARIAN) Only the most recent of2 resultswithin the time period is included. HGB 14.3 12.0 - 16.0 G/DL 03/06/2024 2:10 PM SYSTEMS LIBRARIAN [facility] HCT 43.6 37.0 - 52.0 % 03/06/2024 2:10 PM SYSTEMS LIBRARIAN [facility] 03/06/2024 1:40 PM SYSTEMS LIBRARIAN Rigo Kaplan MD LABORATORY Final Result [facility] [address] [place] [address], [place] [phone] [id number] * (ABNORMAL) DIRECT BILIRUBIN (03/06/2024 4:15 AM SYSTEMS LIBRARIAN) BILIRUBIN DIRECT S/P/B 0.4(H) 0.0 - 0.2 MG/DL 03/06/2024 9:34 AM SYSTEMS LIBRARIAN [facility] 03/06/2024 4:15 AM SYSTEMS LIBRARIAN Jerrell Mayfield MD LABORATORY Final Result [facility] [address] [place] [address], [id number] * US ABD LIMITED (03/06/2024 12:26 AM SYSTEMS LIBRARIAN) Anatomical Region Laterality Modality Abdomen Ultrasound 03/06/2024 12:2 7 AM SYSTEMS LIBRARIAN Impressions 03/06/2024 12:29 AM SYSTEMS LIBRARIAN IMPRESSION: Right upper quadrant abdominal sonogram is within normal limits. Referred By: LOIDA CHRISTIAN Interpreted By: Chary Chilel MD, 03/06/2024 12:27 AM Narrative 03/06/2024 12:29 AM SYSTEMS LIBRARIAN [address] [address] EXAMINATION: Right Upper Abdominal Quadrant Sonogram INDICATION: Elevated liver function tests. TECHNIQUE: Grayscale and color Doppler imaging of the right upper abdominal quadrant was obtained. COMPARISON: CT abdomen/pelvis 03/01/2024. FINDINGS: Liver: No focal parenchymal lesion. ??Patency of the hepatic veins and main portal vein. Pancreas: Distal pancreatic body and tail partially obscured by overlying bowel gas.. Gallbladder: Normal anechoic lumen with no gallstones, significant distention, or wall thickening. ??A sonographic Barrera sign was not elicited. The common duct is normal measuring 3 mm. Procedure Note Chary Chilel MD - 03/06/[address] [address] EXAMINATION: Right Upper Abdominal Quadrant Sonogram INDICATION: Elevated liver function tests. TECHNIQUE: Grayscale and color Doppler imaging of the right upperabdominal quadrant was obtained. COMPARISON: CT abdomen/pelvis 03/01/2024. FINDINGS: Liver: No focal parenchymal lesion. Patency of the hepatic veins and mainportal vein. Pancreas: Distal pancreatic body and tail partially obscured by overlyingbowel gas.. Gallbladder: Normal anechoic lumen with no gallstones, significantdistention, or wall thickening. A sonographic Barrera sign was notelicited. The common duct is normal measuring 3 mm. IMPRESSION: Right upper quadrant abdominal sonogram is within normallimits. Referred By: LOIDA CHRISTIAN Interpreted By: Chary Chilel MD, 03/06/2024 12:27 AM us Rigo Kaplan MD ULTRASOUND Final Result * HEMOGLOBIN, GLYCOSYLATED (03/05/2024 11:45 PM SYSTEMS LIBRARIAN) HGB A1C 5.3 <5.7 % 03/06/2024 2:54 AM SYSTEMS LIBRARIAN [facility] ESTIMATED AVG GLUCOSE 105 74 - 114 MG/DL 03/06/2024 2:54 AM SYSTEMS LIBRARIAN [facility] 03/05/2024 11:4 5 PM SYSTEMS LIBRARIAN us Rigo Kaplan MD LABORATORY Final Result [facility] [address] [place] [address], [id number] * STREP PNEUMO AG URINE (03/05/2024 11:16 PM SYSTEMS LIBRARIAN) Pathologist [facility] S. PNEUMONIAE URINARY AG NEGATIVE NEGATIVE 03/06/2024 11:27 AM SYSTEMS LIBRARIAN [facility] Comment: PRESUMPTIVE NEGATIVE FOR PNEUMOCOCCAL PNEUMONIA, SUGGESTING NO CURRENT OR RECENT PNEUMOCOCCAL INFECTION. INFECTION DUE TO STREPTOCOCCUS PNEUMONIA CANNOT BE RULED OUT SINCE THE ANTIGEN PRESENT IN THE SAMPLE MAY BELOW THE DETECTION LIMIT OF THE TEST. SPECIMEN TYPE URINE CLEAN CATCH 03/05/2024 11:15 PM SYSTEMS LIBRARIAN [facility] URINE SPECIMEN OBTAINED BY CLEAN CATCH PROCEDURE / Unknown 03/05/2024 11:16 PM SYSTEMS LIBRARIAN us Rigo Kaplan MD MICROBIOLOGY - GENERAL ORDERABL ES Final Result [facility] [address] [place] [address], [id number] * (ABNORMAL) URINE DRUG SCREEN (TOXICOLOGY) (03/05/2024 11:16 PM SYSTEMS LIBRARIAN) PHENCYCLIDINE PCP (U) NEGATIVE NEGATIVE 03/05/2024 11:48 PM SYSTEMS LIBRARIAN [facility] BENZODIAZEPINES SCREEN (U) NEGATIVE NEGATIVE 03/05/2024 11:48 PM SYSTEMS LIBRARIAN [facility] COCAINE METABOLITES (U) NEGATIVE NEGATIVE 03/05/2024 11:48 PM SYSTEMS LIBRARIAN [facility] AMPHETAMINE (U) NEGATIVE NEGATIVE 11:48 PM SYSTEMS LIBRARIAN [facility] CANNABINOIDS SCREEN (U) NEGATIVE NEGATIVE 03/05/2024 11:48 PM [facility] OPIATE SCREEN (U) POSITIVE SCREEN RESULT, IF CONFIRMATION DESIRED PLEASE CONTACT LAB WITHIN ONE WEEK. (A) NEGATIVE 03/05/2024 11:48 PM SYSTEMS LIBRARIAN [facility] BARBITURATES SCREEN (U) NEGATIVE NEGATIVE 03/05/2024 11:48 PM [facility] URINE TOX COMMENT Unconfirmed screening results are to be used only for medical purposes. 03/05/2024 11:16 PM [facility] CUTOFF CONCENTRATION (U) Cut-off Concentration for a positive result 03/05/2024 11:16 PM [facility] Comment: Phencyclidine ? 25 ng/mL Benzodiazepines ? 200 ng/mL Cocaine ? 300 ng/mL Amphetamine ? 1000 ng/mL Cannabinoids ?50 ng/mL Opiates ? 300 ng/mL Barbiturates ?200 ng/mL URINE SPECIMEN / Unknown 03/05/2024 11:16 PM SYSTEMS LIBRARIAN us Rigo Kaplan MD URINE ORDERABLES Final Result Performing Organization Address [facility] de Phone Number [facility] [address] [place] [address], [id number] * LEGIONELLA AG URINE (03/05/2024 11:16 PM SYSTEMS LIBRARIAN) LEGIONELLA ANTIGEN (URINE) NEGATIVE NEGATIVE 03/06/2024 11:27 AM SYSTEMS LIBRARIAN [facility] Comment: PRESUMPTIVE NEGATIVE FOR L. PNEUMOPHILA SEROGROUP 1 ANTIGEN IN URINE, SUGGESTING NO RECENT OR CURRENT INFECTION. INFECTION DUE TO LEGIONELLA CANNOT BE RULED OUT SINCE OTHER SEROGROUPS AND SPECIES MAY CAUSE DISEASE, ANTIGEN MAY NOT BE PRESENT IN URINE IN EARLY INFECTION, AND THE LEVEL OF ANTIIGNE PRESENT IN THE URINE MAY BE BELOW THE DETECTION LIMIT OF THE TEST. URINE SPECIMEN / Unknown 03/05/2024 11:16 PM SYSTEMS LIBRARIAN us Rigo Kaplan MD MICROBIOLOGY - GENERAL ORDERABL ES Final Result Performing Organization Address [facility] de Phone Number [facility] [address] [place] [address], [phone] * (ABNORMAL) BIOFIRE PCR UPPER RESPIRATORY PROFILE (RESPIRATORY PCR PANEL 2) (03/05/2024 10:31 PM SYSTEMS LIBRARIAN) Only the most recent of2 resultswithin the time period is included. ADENOVIRUS PCR (RESP) NOT DETECTED NOT DETECTED 03/06/2024 12:05 AM SYSTEMS LIBRARIAN [facility] CORONAVIRUS 229E PCR (RESP) NOT DETECTED NOT DETECTED 03/06/2024 12:05 AM SYSTEMS LIBRARIAN [facility] CORONAVIRUS HKU1 PCR (RESP) NOT DETECTED NOT DETECTED 03/06/2024 12:05 AM SYSTEMS LIBRARIAN [facility] CORONAVIRUS NL63 PCR (RESP) NOT DETECTED NOT DETECTED 03/06/2024 12:05 AM [facility] CORONAVIRUS OC43 PCR (RESP) NOT DETECTED NOT DETECTED 03/06/2024 12:05 AM [facility] METAPNEUMOVIRUS PCR (RESP) NOT DETECTED NOT DETECTED 03/06/2024 12:05 AM [facility] RHINOVIRUS/ENTEROV IRUS PCR (RESP) DETECTED(AA ) NOT DETECTED 03/06/2024 12:05 AM [facility] Comment: RESULTS PHONED TO AND READ BACK BY: [id number] RN ON 9TH FLOOR 03/06 0005 TLV INFLUENZA A PCR (RESP) NOT DETECTED NOT DETECTED 03/06/2024 12:05 AM [facility] INFLUENZA B PCR (RESP) NOT DETECTED NOT DETECTED 03/06/2024 12:05 AM [facility] PARAINFLUENZA 1 PCR (RESP) NOT DETECTED NOT DETECTED 03/06/2024 12:05 AM [facility] PARAINFLUENZA 2 PCR (RESP) NOT DETECTED NOT DETECTED 03/06/2024 12:05 AM [facility] PARAINFLUENZA 3 PCR (RESP) NOT DETECTED NOT DETECTED 03/06/2024 12:05 AM [facility] PARAINFLUENZA 4 PCR (RESP) NOT DETECTED NOT DETECTED 03/06/2024 12:05 AM [facility] RSV PCR (RESP) NOT DETECTED NOT DETECTED 03/06/2024 12:05 AM [facility] B PARAPERTUSIS PCR (RESP) NOT DETECTED NOT DETECTED 03/06/2024 12:05 AM [facility] BORDETELLA PERTUSSIS PCR (RESP) NOT DETECTED NOT DETECTED 03/06/2024 12:05 AM [facility] CHLAMYDOPHILA PNEUMONIAE PCR (RESP) NOT DETECTED NOT DETECTED 03/06/2024 12:05 AM [facility] MYCOPLASMA PNEUMONIAE PCR (RESP) NOT DETECTED NOT DETECTED 03/06/2024 12:05 AM [facility] CORONAVIRUS SARS COV 2 PCR (RESP) NOT DETECTED NOT DETECTED 03/06/2024 12:05 AM SYSTEMS LIBRARIAN [facility] NASOPHARYNGEAL SWAB / Unknown 03/05/2024 10:31 PM SYSTEMS LIBRARIAN us Rigo Kaplan MD MICROBIOLOGY - GENERAL ORDERABL ES Final Result Performing Organization Address [facility] Co de Phone Number [facility] [address] [place] [address], [id number] * HEPATITIS PANEL,ACUTE (03/05/2024 10:18 PM SYSTEMS LIBRARIAN) HEPATITIS B SURFACE AG NON-REACT ELZBIETA NON-REACT ELZBIETA 03/08/2024 2:20 AM SYSTEMS LIBRARIAN [facility] Comment:HBsAg NOT DETECTED. HEP B CORE IGM NON-REACT ELZBIEAT NON-REACT ELZBIETA 03/08/2024 3:03 AM SYSTEMS LIBRARIAN [facility] Comment: IgM ANTI HBc NOT DETECTED. DOES NOT EXCLUDE THE POSSIBILITY OF EXPOSURE TO OR INFECTION WITH HBV. NO RETEST REQUIRED. HIGH DOSES OF BIOTIN MAY INTERFERE WITH THIS TEST RESULT. CORRELATION TO CLINICAL HISTORY AND PRESENTATION RECOMMENDED. HAV IGM NON-REACT ELZBIETA NON-REACT ELZBIETA 03/08/2024 3:00 AM SYSTEMS LIBRARIAN [facility] Comment: IgM ANTI HAV NOT DETECTED. DOES NOT EXCLUDE THE POSSIBILITY OF EXPOSURE TO OR INFECTION WITH HAV. LEVELS OF IgM ANTI HAV MAY BE BELOW THE CUTOFF IN EARLY INFECTION. HEPATITIS C AB NON-REACT ELZBIETA NON-REACT ELZBIETA 03/08/2024 10:59 AM SYSTEMS LIBRARIAN [facility] Comment: ANTIBODIES TO HCV NOT DETECTED. DOES NOT EXCLUDE THE POSSIBILITY OF EXPOSURE TO HCV. 03/05/2024 10:1 8 PM SYSTEMS LIBRARIAN us Rigo Kaplan MD LABORATORY Final Result Performing Organization Address [facility] Co de Phone Number [facility] [address] [place] [address], [id number] * LIPASE (03/05/2024 10:18 PM SYSTEMS LIBRARIAN) Only the most recent of2 resultswithin the time period is included. Pathologist [facility] LIPASE 41 13 - 75 UNITS/L 03/06/2024 12:48 AM SYSTEMS LIBRARIAN [facility] 03/05/2024 10:1 8 PM SYSTEMS LIBRARIAN us Rigo Kaplan MD LABORATORY Final Result Performing Organization Address [facility]/ZIP Co de Phone Number [facility] [address] [place] [address], [id number] * ETHANOL (03/05/2024 10:18 PM SYSTEMS LIBRARIAN) Pathologist [facility] ALCOHOL S/P/B ZERO 0 G/DL 03/05/2024 10:44 PM SYSTEMS LIBRARIAN [facility] 03/05/2024 10:1 8 PM SYSTEMS LIBRARIAN us Rigo Kaplan MD LABORATORY Final Result Performing Organization Address [facility] de Phone Number [facility] [address] [place] [address], [place] [phone] * CULTURE, BACTERIA BLOOD (03/05/2024 10:17 PM SYSTEMS LIBRARIAN) Only the most recent of2 resultswithin the time period is included. Pathologist [facility] SPEC DESCRIPTION BLOOD 03/05/2024 10:01 PM SYSTEMS LIBRARIAN [facility] SPECIAL REQUESTS NO SPECIAL REQUEST 03/05/2024 10:01 PM SYSTEMS LIBRARIAN [facility] CULTURE RESULT NO GROWTH 5 DAYS 03/10/2024 7:20 PM SYSTEMS LIBRARIAN [facility] BLOOD SPECIMEN OBTAINED FOR BLOOD CULTURE / Unknown 03/05/2024 10:17 PM SYSTEMS LIBRARIAN 03/05/2024 10:46 PM SYSTEMS LIBRARIAN us Rigo Kaplan MD MICROBIOLOGY - GENERAL ORDERABL ES Final Result [facility] [address] [place] [address], [id number] * XR SHOULDER LT 3V (03/05/2024 9:47 AM SYSTEMS LIBRARIAN) Anatomical Region Laterality Modality Shoulder Radiographic Margarita ging 03/05/2024 10:1 1 AM SYSTEMS LIBRARIAN Impressions 03/05/2024 10:12 AM SYSTEMS LIBRARIAN IMPRESSION: Anatomic alignment without fracture or localizing abnormality. Referred By: ?? Interpreted By: Lalo Shrestha MD, 03/05/2024 10:11 AM Narrative 03/05/2024 10:12 AM SYSTEMS LIBRARIAN [address] [place] [address] EXAMINATION: XR SHOULDER LT 3V INDICATIONS: Pain COMPARISON: NONE FINDINGS: 3 views of the left shoulder demonstrate grossly anatomic alignment without displaced fracture, region of periosteal elevation, or aggressive osseous lesion. The coracoclavicular and acromioclavicular intervals are maintained. No Hill-Sachs or Bankart deformity. The soft tissue fat planes are preserved without discrete soft tissue mass, joint effusion, ??or suspicious calcification. The visualized left lung is clear and the visualized left hemithorax is intact. Procedure Note Lalo Shrestha MD - 03/05/[address] [place] [address] EXAMINATION: XR SHOULDER LT 3V INDICATIONS: Pain COMPARISON: NONE FINDINGS: 3 views of the left shoulder demonstrate grossly anatomic alignmentwithout displaced fracture, region of periosteal elevation, or aggressiveosseous lesion. The coracoclavicular and acromioclavicular intervals are maintained. No Hill-Sachs or Bankart deformity. The soft tissue fat planes are preserved without discrete soft tissuemass, joint effusion, or suspicious calcification. The visualized left lung is clear and the visualized left hemithorax isintact. IMPRESSION: Anatomic alignment without fracture or localizingabnormality. Referred By: Interpreted By: Lalo Shrestha MD, 03/05/2024 10:11 AM us Loida Christian DO GENERAL IMAGING Final Result * PARTIAL THROMBOPLASTIN TIME,PTT (03/05/2024 9:21 AM SYSTEMS LIBRARIAN) PTT 32.0 25.1 - 36.5 SEC 03/05/2024 10:[address] [facility] Comment:THERAPEUTIC RANGE: 4 6.2-77.0 SEC 03/05/2024 9:21 AM SYSTEMS LIBRARIAN us Loida Christian DO LABORATORY Final Result Performing Organization Address [facility] Co de Phone Number [facility] [address] [place] [address], * (ABNORMAL) PROTIME/INR, VENOUS (03/05/2024 9:21 AM SYSTEMS LIBRARIAN) PROTIME 15.3(H) 9.4 - 12.5 SEC 03/05/2024 10:[address] [facility] INR 1.3(H) 0.8 - 1.0 03/05/2024 10:[address] [facility] 03/05/2024 9:21 AM SYSTEMS LIBRARIAN us Loida Christian DO LABORATORY Final Result Performing Organization Address [facility] Co de Phone Number [facility] [address] [place] [address], * (ABNORMAL) URINALYSIS (03/01/2024 7:20 PM SYSTEMS LIBRARIAN) Only the most recent of2 resultswithin the time period is included. COLOR (U) DARK YELLOW 03/01/2024 7:[address] [facility] TRANSPARENCY CLEAR 03/01/2024 7:[address] [facility] SPECIFIC GRAVITY (U) 1.010 1.000 - 1.025 03/01/2024 7:[address] [facility] U PH 7.0 5.0 - 8.0 03/01/2024 7:[address] [facility] LEUKOCYTES (U) NEGATIVE NEGATIVE 03/01/2024 7:[address] [facility] NITRITES NEGATIVE NEGATIVE 03/01/2024 7:[address] [facility] PROTEIN RANDOM (U) TRACE(A) NEGATIVE 03/01/2024 7:[address] [facility] GLUCOSE (U) NEGATIVE NEGATIVE 03/01/2024 7:[address] [facility] KETONES MG/DL (U) NEGATIVE NEGATIVE 03/01/2024 7:[address] [facility] UROBILINOGEN 4.0(H) <1.0 EU/DL 03/01/2024 7:[address] [facility] BILIRUBIN (U) NEGATIVE NEGATIVE 03/01/2024 7:[address] [facility] BLOOD (U) NEGATIVE NEGATIVE 03/01/2024 7:[address] [facility] WBC/HPF 0-5 0 - 5 /HPF 03/01/2024 7:[address] [facility] RBC/HPF 0-5 0 - 5 /HPF 03/01/2024 7:[address] [facility] EPI/LPF RARE /LPF 03/01/2024 7:[address] [facility] BACTERIA (U) TRACE /HPF 03/01/2024 7:[address] [facility] URINE SPECIMEN OBTAINED BY CLEAN CATCH PROCEDURE / Unknown 03/01/2024 7:20 PM SYSTEMS [employer]ARIAN us Lorri Haddad MD URINE ORDERABLES Final Resu lt [facility] [address] [place] [address], * CULTURE URINE (03/01/2024 7:20 PM SYSTEMS LIBRARIAN) SPEC DESCRIPTION URINE CLEAN CATCH 03/01/2024 7:[address] [facility] SPECIAL REQUESTS NO SPECIAL REQUEST 03/01/2024 7:[address] [facility] CULTURE RESULT NO GROWTH (< OR = 1,000 CFU/ML) 03/03/2024 10:56 AM SYSTEMS [facility] URINE SPECIMEN OBTAINED BY CLEAN CATCH PROCEDURE / Unknown 03/01/2024 7:20 PM SYSTEMS LIBRARIAN 03/01/2024 7:33 PM SYSTEMS LIB[employer]ARIAN Lorri Haddad MD MICROBIOLOGY - GENERAL ORDE ANKUR Final Result Performing Organization Address City/State/[facility] Co de Phone Number [facility] [address] [place] [address], [id number] [facility] [address] [place] [address], * CT ABD+PEL W IV CON ONLY (03/01/2024 5:41 PM SYSTEMS LIBRARIAN) Anatomical Region Laterality Modality Abdomen Computed Tomogra phy 03/01/2024 5:51 PM SYSTEMS LIBRARIAN Impressions 03/01/2024 6:01 PM SYSTEMS [facility]IAN IMPRESSION: Incidental bilateral pulmonary areas of nonspecific densities and consolidation with limited evaluation on this nondedicated study. Findings may represent bronchopneumonia and/or atelectasis. Clinical correlation recommended. Limited evaluation for urolithiasis on IV contrast enhanced study. Artifact versus potential tiny nonobstructing left intrarenal calculi. No signs of obstructive uropathy on either side. Completely decompressed bladder. Mild right colonic fecal stasis suggested. Hepatosplenomegaly. Indeterminant hypoattenuating subcentimeter splenic lesion. Additional incidental, nonurgent, and chronic appearing findings as detailed above. Ordered By: LORRI HADDAD Interpreted By: Tameka Fletcher MD, 03/01/2024 5:51 PM Narrative 03/01/2024 6:01 PM SYSTEMS [facility] [address] [place] [address] EXAM: CT ??ABDOMEN - PELVIS ??WITH CONTRAST Exam Date: 03/01/2024 4:59 PM INDICATION:Male ??28 years ??left flank and the LLQ abdominal pain for 5 days with fever TECHNIQUE: Contiguous axial slices were obtained of the abdomen and pelvis post infusion of ??88mL of IV Isovue 370 with coronal and sagittal reformats as per standard department protocol. A dose lowering technique was utilized for this procedure which may include but is not limited to dose reduction techniques, automated exposure control, and/or the use of iterative reconstruction in accordance with ALARA principle. COMPARISON: None FINDINGS: Partially imaged bibasilar pulmonary band like density with some hazy opacities in 1 curvilinear areas of consolidation, greater degree in the RLL for the latter. Limited evaluation of the partially imaged thorax on this nondedicated study. GASTROINTESTINAL SYSTEM: No significant abnormality of the stomach or small bowel. Unremarkable appendix. The sigmoid colon is decompressed. Scattered air throughout bowel to the level of the rectum. No bowel obstruction. Minimal right ascending colonic fecal stasis. No dominant segmental bowel wall thickening or hyperenhancement demonstrated. ?? PERITONEUM & MESENTERY: No pneumoperitoneum or significant abdominal ascites. VASCULATURE & RETROPERITONEUM: No significant abnormality of the aorta. Presumed contrast flow artifact proximal IVC. LIVER: Mild hepatomegaly. GALLBLADDER/BILIARY TREE: Decompressed gallbladder. No pericholecystic inflammatory change. No intrahepatic or extrahepatic biliary ductal dilatation. PANCREAS: No significant abnormality of the visualized pancreas. SPLEEN: Superior margin of the spleen is partially obscured by prominent left hepatic lobe. Mild degree of splenomegaly is noted measuring longitudinally 14 cm. There is dominant area of subcentimeter hypoattenuation within the superior spleen on series 2 image 28 is noted, indeterminant. ADRENAL GLANDS: No significant abnormality demonstrated. : Normal variant lobulated morphology of both kidneys. No hydronephrosis or discrete perinephric fluid collection on either side. Limited evaluation for urolithiasis on IV contrast enhanced study. Potential nonobstructing left intrarenal calculi versus artifact. No hydroureter on either side. The bladder is completely decompressed. GENDER SPECIFIC/PELVIS:Heterogeneous prostate with the dominant macrocalcification noted. No significant pelvic ascites. Limited evaluation partially imaged scrotum on this nondedicated study. Indeterminant dominant calcification base of the left penis. LYMPH NODES: No suspicious bulky bilateral inguinal, pelvic, retroperitoneal, or mesenteric lymphadenopathy. SOFT TISSUES-OSSEOUS: Partially imaged bilateral gynecomastia. Small fat- containing umbilical hernia. Minimal osseous degenerative changes noted. Procedure Note Tameka Fletcher MD - 03/01/2024 [facility] [address] [place] [address] EXAM: CT ABDOMEN - PELVIS WITH CONTRAST Exam Date: 03/01/2024 4:59 PM INDICATION:Male 28 years left flank and the LLQ abdominal pain for 5days with fever TECHNIQUE: Contiguous axial slices were obtained of the abdomen and pelvispost infusion of 88mL of IV Isovue 370 with coronal and sagittalreformats as per standard department protocol. A dose lowering techniquewas utilized for this procedure which may include but is not limited todose reduction techniques, automated exposure control, and/or the use ofiterative reconstruction in accordance with ALARA principle. COMPARISON: None FINDINGS: Partially imaged bibasilar pulmonary band like density with some hazyopacities in 1 curvilinear areas of consolidation, greater degree in theRLL for the latter. Limited evaluation of the partially imaged thorax on this nondedicatedstudy. GASTROINTESTINAL SYSTEM: No significant abnormality of the stomach orsmall bowel. Unremarkable appendix. The sigmoid colon is decompressed.Scattered air throughout bowel to the level of the rectum. No bowelobstruction. Minimal right ascending colonic fecal stasis. No dominantsegmental bowel wall thickening or hyperenhancement demonstrated. PERITONEUM & MESENTERY: No pneumoperitoneum or significant abdominalascites. VASCULATURE & RETROPERITONEUM: No significant abnormality of the aorta.Presumed contrast flow artifact proximal IVC. LIVER: Mild hepatomegaly. GALLBLADDER/BILIARY TREE: Decompressed gallbladder. No pericholecysticinflammatory change. No intrahepatic or extrahepatic biliary ductaldilatation. PANCREAS: No significant abnormality of the visualized pancreas. SPLEEN: Superior margin of the spleen is partially obscured by prominentleft hepatic lobe. Mild degree of splenomegaly is noted measuringlongitudinally 14 cm. There is dominant area of subcentimeterhypoattenuation within the superior spleen on series 2 image 28 is noted,indeterminant. ADRENAL GLANDS: No significant abnormality demonstrated. : Normal variant lobulated morphology of both kidneys. No hydronephrosisor discrete perinephric fluid collection on either side. Limitedevaluation for urolithiasis on IV contrast enhanced study. Potentialnonobstructing left intrarenal calculi versus artifact. No hydroureter oneither side. The bladder is completely decompressed. GENDER SPECIFIC/PELVIS:Heterogeneous prostate with the dominantmacrocalcification noted. No significant pelvic ascites. Limitedevaluation partially imaged scrotum on this nondedicated study.Indeterminant dominant calcification base of the left penis. LYMPH NODES: No suspicious bulky bilateral inguinal, pelvic,retroperitoneal, or mesenteric lymphadenopathy. SOFT TISSUES-OSSEOUS: Partially imaged bilateral gynecomastia. Smallfat- containing umbilical hernia. Minimal osseous degenerative changesnoted. IMPRESSION: Incidental bilateral pulmonary areas of nonspecific densities andconsolidation with limited evaluation on this nondedicated study. Findings may represent bronchopneumonia and/or atelectasis. Clinical correlation recommended. Limited evaluation for urolithiasis on IV contrast enhanced study. Artifact versus potential tiny nonobstructing left intrarenal calculi. No signs of obstructive uropathy on either side. Completely decompressed bladder. Mild right colonic fecal stasis suggested. Hepatosplenomegaly. Indeterminant hypoattenuating subcentimeter spleniclesion. Additional incidental, nonurgent, and chronic appearing findings asdetailed above. Ordered By: LORRI HADDAD Interpreted By: Tameka Fletcher MD, 03/01/2024 5:51 PM us Lorri Haddad MD CT Final Resul t * LACTIC ACID W REFLEX (SEPSIS) (03/01/2024 5:25 PM SYSTEMS LIBRARIAN) LACTIC ACID VENOUS 1.4 0.4 - 2.0 MMOL/L 03/01/2024 5:[address] [facility] 03/01/2024 5:25 PM SYSTEMS LIBRARIAN oLrri Haddad MD LABORATORY Final Resul t Performing Organization Address [facility]/ZIP Co de Phone Number [facility] [address] [place] [address], * CORONAVIRUS (COVID-19) ANTIGEN (03/01/2024 5:25 PM SYSTEMS LIBRARIAN) Pathologist [facility] CORONAVIRUS ANTIGEN IA NEGATIVE NEGATIVE 03/01/2024 6:[address] [facility] Comment: NEGATIVE RESULTS DO NOT RULE OUT SARS-COV-2 INFECTION AND SHOULD NOT BE USED THE SOLE BASIS FOR TREATMENT OR PATIENT MANAGEMENT DECISIONS, INCLUDING INFECTION CONTROL DECISIONS. NEGATIVE RESULTS SHOULD BE CONSIDERED IN THE CONTEXT OF A PATIENT'S RECENT EXPOSURES, HISTORY AND THE PRESENCE OF CLINICAL SIGNS AND SYMPTOMS CONSISTENT WITH COVID 19. THIS TEST HAS BEEN AUTHORIZED BY THE FDA UNDER AN EMERGENCY USE AUTHORIZATION (EUA) FOR USE BY AUTHORIZED LABORATORIES. SPECIMEN TYPE NASAL 03/01/2024 5:[address] [facility] NASAL NASAL STRUCTURE / Unknown 03/01/2024 5:25 PM SYSTEMS LIBRARIAN Lorri Haddad MD MICROBIOLOGY - GENERAL ORDE RABLES Final Result Performing Organization Address City/[facility]/ZIP Co de Phone Number [facility] [place] [address], * INFLUENZA A & B (03/01/2024 5:25 PM SYSTEMS LIBRARIAN) SPECIMEN TYPE (INFLUENZA) NASOPHARYNGEAL SWAB 03/01/2024 5:[address] [facility] INFLUENZA A NEGATIVE NEGATIVE 03/01/2024 6:[address] [facility] INFLUENZA B NEGATIVE NEGATIVE 03/01/2024 6:[address] [facility] Comment: A NEGATIVE RESULT DOES NOT EXCLUDE INFLUENZA VIRUS INFECTION. ??IF INFLUENZA IS CIRCULATING IN YOUR COMMUNITY, A DIAGNOSIS OF INFLUENZA SHOULD BE CONSIDERED BASED ON A PATIENT'S CLINICAL PRESENTATION AND EMPIRIC ANTIVIRAL TREATMENT SHOULD BE CONSIDERED IF INDICATED. NASOPHARYNGEAL SWAB / Unknown 03/01/2024 5:25 PM SYSTEMS LIBRARIAN Lorri Haddad MD MICROBIOLOGY - GENERAL LAQUITA PASCUAL Final Result [facility] [address] [place] [address], from Last 3 Months Insurance MEDICAID Advance Directives * Full Code (Latest Code Status on File) Date Activated Date Inactivated Comments 03/05/2024 10:03 PM 03/06/2024 6:54 PM Care Teams Waistline Joiner Overlock Relationship Specialty Start Date End Date None, Provider, PCP - General UNKNOWN PHYSICIAN SPECIALTY 03/27/22
[2024-04-28 06:23] VITALS: BP 141/89; PULSE 71; RESP 20; TEMP 36.3; O2SAT 98; BMI 28.3
[2024-04-28] MEDS: LACTATED RINGERS 1,000 ML 150 ML IV CONT (06:38)
--- NOTE | 2024-04-28 07:23 | WPDANESEPPF ---
Anes - Initial Pre Proc Eval Procedure: Operation Date: 04/28/24 07:30 Proposed Procedures p Esophagogastroduodenoscopy - Sudhakar Lowe MD Date/Time: 04/28/24 07:23 Surgeon: Sudhakar Lowe MD Pre Op Diagnosis: Epigastric Pain / Vomiting Patient Data Age: 28 Gender: M Height: 1.85 m Weight: 97.6 kg Last Vital Signs Temp 36.3 C L 04/28/24 06:23 Pulse 71 04/28/24 06:23 Resp 20 04/28/24 06:23 BP 141/89 H 04/28/24 06:23 Pulse Ox 98 04/28/24 06:23 O2 Del Method Room Air 04/28/24 06:23 Allergies Allergy/AdvReac Type Severity Reaction Status Date / Time No Known Allergies Allergy Verified 04/28/24 06:21 Home Medications ?Medication ?Instructions ?Recorded ?Confirmed ?Type omeprazole 40 mg capsule,delayed 40 mg PO DAILY #30 caps 04/19/24 04/28/24 Rx release Patient hx anesthesia problems: none Family hx anesthesia problems: none Results Review: All pre-operative results and documents have been reviewed as part of the pre-operative evaluation. [facility] Social History Social History Smoking status: Never smoker Substance use: current Substance use type: marijuana Living arrangements: alone Spiritual care concerns: No Anes - Eval Final PreProcedure Day of Procedure 04/28/24 07:23 Patient weight: overweight Heart: regular rate and rhythm Lungs: clear to auscultation Airway: Mallampati scale class II Neurological: alert and oriented Last oral intake: >/= 8 hours ASA classification: II Emergent: no Anesthetic plan: proceed Anesthesia type and monitoring: general GIVS and standard monitoring Results Review: All pre-operative results and documents have been reviewed as part of the pre-operative evaluation. Informed Consent: The patient's anesthetic plan and its attendant risks and benefits were discussed with the patient/family/POA. Questions were solicited and answers provided to the satisfaction of the patient/family/POA.
--- NOTE | 2024-04-28 07:32 | WPDHPUPDATE1 ---
History and Physical Update Update Date/Time: 04/28/24 07:32 History and Physical has been reviewed, including an updated exam of the patient. There are NO changes in the patient's condition. Risks, benefits, and alternatives have been discussed and questions answered. Patient agrees to proceed with procedure.
[2024-04-28 07:46] VITALS: BP 122/78; PULSE 78; RESP 18; O2SAT 98
[2024-04-28 07:55] VITALS: BP 133/92; PULSE 74; RESP 18; O2SAT 100
[2024-04-28 08:06] VITALS: BP 138/88; PULSE 70; RESP 20; O2SAT 99
== END 2024-04-28 08:14 | disposition home or self-care (01) ==
PROVIDERS: PCP Registered Nurse; Referring Provider Nurse Practitioner; Visit Provider Internal Medicine Gastroenterology
PROC: 0DJ08ZZ Inspection of Upper Intestinal Tract, Via Natural or Artificial Opening Endoscopic (ICD-10-PCS; CPT 43239; principal; 2024-04-28 07:30)
DX: K29.80 Duodenitis without bleeding (principal); K31.89 Other diseases of stomach and duodenum
CPT/HCPCS: 43239; 88305; J2003; J2704; J7120